=== PATIENT | female | born 1975 | race American Indian/Alaskan Native ===

== ENCOUNTER 2017-01-21 22:34 | Emergency (ER) | payer SELFPAY ==
[2017-01-21 23:08] LABS: Basophils % (Auto) 0.8 % (0.0-1.8); Eosinophils % (Auto) 0.9 % (0.0-4.3); Hematocrit 38.7 % (30.3-42.9); Hemoglobin 14.1 gm/dl (10.1-14.3); Mean Corpuscular HGB Conc 36 % (30-34); Mean Corpuscular Hemoglobin 26 pg (28-32); Mean Corpuscular Volume 72 fl (79-97); Platelet Count 277 K/mm3 (140-440); Red Blood Count 5.37 M/mm3 (3.65-5.03); Red Cell Distribution Width 15.6 % (13.2-15.2); White Blood Count 8.7 K/mm3 (4.5-11.0)
[2017-01-21 23:17] LABS: INR 0.94 (0.87-1.13)
[2017-01-21 23:18] LABS: Partial Thromboplastin Time 28.6 Sec. (24.2-36.6)
[2017-01-21 23:23] LABS: Anion Gap 18 mmol/L; BUN/Creatinine Ratio 17; Blood Urea Nitrogen 15 mg/dL (7-17); Carbon Dioxide 24 mmol/L (22-30); Chloride 98.4 mmol/L (98-107); Glucose 89 mg/dL (65-100); Potassium 3.9 mmol/L (3.6-5.0); Sodium 136 mmol/L (137-145)
--- NOTE | 2017-01-22 00:48 | Cat Scan Report ---
FINAL REPORT EXAM: CT HEAD/BRAIN WO CON HISTORY: htn, h/a , dizziness , left neck pain TECHNIQUE: Routine axial imaging was obtained of the brain without IV contrast. FINDINGS: There are no attenuation abnormalities. The ventricular system is appropriate in size and is symmetric. The sinuses are clear. The mastoid air cells are well pneumatized. IMPRESSION: Normal exam.
[2017-01-22 04:09] LABS: Bilirubin,Urine NEG (Negative); Blood,Urine SM (Negative); Ketones,Urine NEG (Negative); Leukocyte Esterase,Urine NEG (Negative); Mucus,Urine FEW /HPF; Nitrite,Urine NEG (Negative); Protein,Urine <15 mg/dL mg/dL (Negative); Urobilinogen,Urine < 2.0 mg/dL (<2.0); WBC,Urine < 1.0 /HPF (0.0-6.0)
--- NOTE | 2017-01-22 08:38 | Emergency Department Report ---
HPI - General Chief Complaint: Neuro Symptoms/Deficit Time Seen by Provider: 01/22/17 08:11 - [facility] HPI: Room 23 The patient is a 41-year-old female presenting with a chief complaint of dizziness and headache. The patient states her symptoms began yesterday with intermittent dizziness and headache. Patient states she felt as though her blood pressure was elevated so she came to the emergency department. Patient denies any preceding trauma or fever. The patient states she has been compliant with her amlodipine but does not recall the dosage. The patient states she does not have a primary doctor. When asked how she is feeling currently the patient states she feels "okay." Location: Head Duration: Intermittent Since yesterday Quality: Headache/dizziness Severity: Currently 0/10 Modifying factors: [see above] Context: [see above] Mode of transportation: [not driving] ED Past Medical Hx - Past Medical History Previous Medical History?: Yes Hx Hypertension: Yes Hx Psychiatric Treatment: Yes (PTSD) Hx Asthma: Yes - Surgical History Past Surgical History?: Yes Additional Surgical History: Gallbladder, Arm - Family History Family history: no significant - Social History Smoking Status: Current Every Day Smoker Substance Use Type: Alcohol (occasional), Prescribed - Medications Home Medications: Home Medications Medication Instructions Recorded Confirmed Last Taken Type Butalb/Acetamin/Caff 50-325-40 2 tab PO Q8H PRN #10 tab 01/22/17 Unknown Rx [Fioricet] ED Review of Systems ROS: Stated complaint: HEADACHE Other details as noted in HPI Comment: All other systems reviewed and negative Constitutional: denies: chills, fever Eyes: denies: eye pain, eye discharge, vision change ENT: denies: ear pain, throat pain Respiratory: denies: cough, shortness of breath, wheezing Cardiovascular: denies: chest pain, palpitations Endocrine: no symptoms reported Gastrointestinal: denies: abdominal pain, nausea, diarrhea Genitourinary: denies: urgency, dysuria, discharge Musculoskeletal: denies: back pain, joint swelling, arthralgia Neurological: headache, other (dizziness) Psychiatric: denies: anxiety, depression Hematological/Lymphatic: denies: easy bleeding, easy bruising Physical Exam - Physical Exam Vital Signs: Vital Signs 01/21/17 01/21/17 01/21/17 22:36 22:39 22:40 Temperature 98.1 F Pulse Rate 92 H 92 H 62 Respiratory 18 Rate Blood Pressure 173/102 173/102 121/64 Blood Pressure [Right] O2 Sat by Pulse 100 100 95 Oximetry 01/22/17 01/22/17 01/22/17 02:20 02:21 02:23 Temperature Pulse Rate 89 73 72 Respiratory 21 24 Rate Blood Pressure 194/110 Blood Pressure [Right] O2 Sat by Pulse Oximetry 01/22/17 01/22/17 01/22/17 02:24 02:25 02:26 Temperature Pulse Rate 73 70 71 Respiratory 24 20 25 H Rate Blood Pressure 194/110 194/110 192/101 Blood Pressure [Right] O2 Sat by Pulse Oximetry 01/22/17 01/22/17 01/22/17 02:27 02:29 02:31 Temperature Pulse Rate 69 78 76 Respiratory 15 24 21 Rate Blood Pressure 192/101 192/101 174/84 Blood Pressure [Right] O2 Sat by Pulse Oximetry 01/22/17 01/22/17 01/22/17 02:33 02:35 02:37 Temperature Pulse Rate 73 70 73 Respiratory 21 25 H 13 Rate Blood Pressure 174/84 174/84 174/84 Blood Pressure [Right] O2 Sat by Pulse Oximetry 01/22/17 01/22/17 01/22/17 02:39 02:41 02:42 Temperature 98.4 F Pulse Rate 69 69 Respiratory 18 21 24 Rate Blood Pressure 174/84 174/84 Blood Pressure 192/101 [Right] O2 Sat by Pulse 100 100 Oximetry 01/22/17 01/22/17 01/22/17 03:01 04:00 05:01 Temperature Pulse Rate 83 71 69 Respiratory 12 22 16 Rate Blood Pressure 166/151 182/97 172/100 Blood Pressure [Right] O2 Sat by Pulse Oximetry 01/22/17 01/22/17 06:01 07:01 Temperature Pulse Rate 78 71 Respiratory 15 16 Rate Blood Pressure 131/81 131/81 Blood Pressure [Right] O2 Sat by Pulse Oximetry Physical Exam: GENERAL: The patient is well-developed well-nourished female lying on stretcher not appearing to be in acute distress. [] HEENT: Normocephalic. Atraumatic. Extraocular motions are intact. Patient has moist mucous membranes. NECK: Supple. No meningitic signs are noted. Trachea midline CHEST/LUNGS: Clear to auscultation. There is no respiratory distress noted. HEART/CARDIOVASCULAR: Regular. There is no tachycardia. There is no gallop rub or murmur. ABDOMEN: Abdomen is soft, nontender. Patient has normal bowel sounds. There is no abdominal distention. SKIN: There is no rash. There is no edema. There is no diaphoresis. NEURO: The patient is awake, alert, and oriented. The patient is cooperative. The patient has no focal neurologic deficits. The patient has normal speech. Cranial nerves II through XII grossly intact, no drift MUSCULOSKELETAL: There is no evidence of acute injury. ED Course Vital Signs 01/21/17 01/21/17 01/21/17 22:36 22:39 22:40 Temperature 98.1 F Pulse Rate 92 H 92 H 62 Respiratory 18 Rate Blood Pressure 173/102 173/102 121/64 Blood Pressure [Right] O2 Sat by Pulse 100 100 95 Oximetry 01/22/17 01/22/17 01/22/17 02:20 02:21 02:23 Temperature Pulse Rate 89 73 72 Respiratory 21 24 Rate Blood Pressure 194/110 Blood Pressure [Right] O2 Sat by Pulse Oximetry 01/22/17 01/22/17 01/22/17 02:24 02:25 02:26 Temperature Pulse Rate 73 70 71 Respiratory 24 20 25 H Rate Blood Pressure 194/110 194/110 192/101 Blood Pressure [Right] O2 Sat by Pulse Oximetry 01/22/17 01/22/17 01/22/17 02:27 02:29 02:31 Temperature Pulse Rate 69 78 76 Respiratory 15 24 21 Rate Blood Pressure 192/101 192/101 174/84 Blood Pressure [Right] O2 Sat by Pulse Oximetry 01/22/17 01/22/17 01/22/17 02:33 02:35 02:37 Temperature Pulse Rate 73 70 73 Respiratory 21 25 H 13 Rate Blood Pressure 174/84 174/84 174/84 Blood Pressure [Right] O2 Sat by Pulse Oximetry 01/22/17 01/22/17 01/22/17 02:39 02:41 02:42 Temperature 98.4 F Pulse Rate 69 69 Respiratory 18 21 24 Rate Blood Pressure 174/84 174/84 Blood Pressure 192/101 [Right] O2 Sat by Pulse 100 100 Oximetry 01/22/17 01/22/17 01/22/17 03:01 04:00 05:01 Temperature Pulse Rate 83 71 69 Respiratory 12 22 16 Rate Blood Pressure 166/151 182/97 172/100 Blood Pressure [Right] O2 Sat by Pulse Oximetry 01/22/17 01/22/17 06:01 07:01 Temperature Pulse Rate 78 71 Respiratory 15 16 Rate Blood Pressure 131/81 131/81 Blood Pressure [Right] O2 Sat by Pulse Oximetry ED Medical Decision Making - Lab Data Result diagrams: 01/21/17 22:50 01/21/17 22:50 Laboratory Tests 01/21/17 01/21/17 01/21/17 22:50 22:50 22:50 WBC 8.7 RBC 5.37 H Hgb 14.1 Hct 38.7 MCV 72 L MCH 26 L MCHC 36 H RDW 15.6 H Plt Count 277 Lymph % (Auto) 29.1 Owen % (Auto) 4.2 Eos % (Auto) 0.9 Baso % (Auto) 0.8 Lymph # 2.5 Owen # 0.4 Eos # 0.1 Baso # 0.1 Seg Neutrophils % 65.0 Seg Neutrophils # 5.7 PT 13.1 INR 0.94 APTT 28.6 Thrombin Time Sodium Potassium Chloride Carbon Dioxide Anion Gap BUN Creatinine Estimated GFR BUN/Creatinine Ratio Glucose POC Glucose Calcium Troponin T HCG, Qual Negative Urine Color Urine Turbidity Urine pH Ur Specific [place] Urine Protein Urine Glucose (UA) Urine Ketones Urine Blood Urine Nitrite Urine Bilirubin Urine Urobilinogen Ur Leukocyte Esterase Urine WBC (Auto) Urine RBC (Auto) U Epithel Cells (Auto) Urine Mucus 01/21/17 01/21/17 01/22/17 22:50 22:50 02:48 WBC RBC Hgb Hct MCV MCH MCHC RDW Plt Count Lymph % (Auto) Owen % (Auto) Eos % (Auto) Baso % (Auto) Lymph # Owen # Eos # Baso # Seg Neutrophils % Seg Neutrophils # PT INR APTT Thrombin Time 15.9 Sodium 136 L Potassium 3.9 Chloride 98.4 Carbon Dioxide 24 Anion Gap 18 BUN 15 Creatinine 0.9 Estimated GFR > 60 BUN/Creatinine Ratio 17 Glucose 89 POC Glucose 85 Calcium 9.0 Troponin T < 0.010 HCG, Qual Urine Color Urine Turbidity Urine pH Ur Specific [place] Urine Protein Urine Glucose (UA) Urine Ketones Urine Blood Urine Nitrite Urine Bilirubin Urine Urobilinogen Ur Leukocyte Esterase Urine WBC (Auto) Urine RBC (Auto) U Epithel Cells (Auto) Urine Mucus 01/22/17 03:49 WBC RBC Hgb Hct MCV MCH MCHC RDW Plt Count Lymph % (Auto) Owen % (Auto) Eos % (Auto) Baso % (Auto) Lymph # Owen # Eos # Baso # Seg Neutrophils % Seg Neutrophils # PT INR APTT Thrombin Time Sodium Potassium Chloride Carbon Dioxide Anion Gap BUN Creatinine Estimated GFR BUN/Creatinine Ratio Glucose POC Glucose Calcium Troponin T HCG, Qual Urine Color Yellow Urine Turbidity Clear Urine pH 6.0 Ur Specific [place] 1.013 Urine Protein <15 mg/dl Urine Glucose (UA) Neg Urine Ketones Neg Urine Blood Sm Urine Nitrite Neg Urine Bilirubin Neg Urine Urobilinogen < 2.0 Ur Leukocyte Esterase Neg Urine WBC (Auto) < 1.0 Urine RBC (Auto) 4.0 U Epithel Cells (Auto) 1.0 Urine Mucus Few - EKG Data -: EKG Interpreted by Me EKG shows normal: sinus rhythm Rate: normal - EKG Data When compared to previous EKG there are: previous EKG unavailable Interpretation: other (no ischemic changes seen) - Radiology Data Radiology results: report reviewed (CT head), image reviewed (CT head) CT head (read by radiologist)-negative exam - Differential Diagnosis hypertensive urgency, ICH, migraines, vertigo Critical care attestation.: If time is entered above; I have spent that time in minutes in the direct care of this critically ill patient, excluding procedure time. ED Disposition Clinical Impression: Headache Disposition: DC-01 TO HOME OR SELFCARE Is pt being admited?: No Does the pt Need Aspirin: No Condition: Stable Instructions: Hypertension (ED) Additional Instructions: Return to the emergency department immediately should you develop worsening symptoms, fever, inability to tolerate food or liquid or any other concerns. Prescriptions: Butalb/Acetamin/Caff 50-325-40 [Fioricet] 2 tab PO Q8H PRN #10 tab PRN Reason: Headache Referrals: HEMA ONEAL MD [Staff Physician] - 3-5 Days [facility] [Outside] - 3-5 Days Time of Disposition: 10:17
[2017-01-22] MEDS ORDERED: CATAPRES PO ONE (08:49)
[2017-01-22 10:16] VITALS: BP 138/89
== END 2017-01-22 10:36 | disposition home or self-care (01) ==
LOC: ED 22:34
DX: R51 Headache (principal); I10 Essential (primary) hypertension; J45.909 Unspecified asthma, uncomplicated; F43.10 Post-traumatic stress disorder, unspecified; F17.200 Nicotine dependence, unspecified, uncomplicated
CPT/HCPCS: 36415; 70450; 80048; 81001; 82962; 84484; 84703; 85025; 85610; 85670; 85730; 93005; 93010; 99285

== ENCOUNTER 2017-07-17 02:07 | Inpatient (IN) | payer OTHER ==
[2017-07-17] MEDS ORDERED: DELTASONE PO ONE (04:35)
[2017-07-17] MEDS ORDERED: PROVENTIL IH ONE (04:35)
[2017-07-17] MEDS ORDERED: MOTRIN PO ONE (04:35)
--- NOTE | 2017-07-17 04:35 | Emergency Department Report ---
HPI - General Chief Complaint: Upper Respiratory Infection Time Seen by Provider: 07/17/17 04:29 - HPI HPI: This is a 41-year-old female came to the hospital for body aches, headache, cough since Thursday. States that she is feeling dizzy and she has a cough with minor shortness of breath but no chest pain. Her history is high blood pressure and asthma. She denies any wheezing. Denies any other medical problems. She also has a history of gastric ulcer. She is currently denying any pain. History of PTSD. Surgical history of gallbladder in 2004. Denies any back or abdominal pain. ED Past Medical Hx - Past Medical History Previous Medical History?: Yes Hx Hypertension: Yes Hx Psychiatric Treatment: Yes (PTSD) Hx Asthma: Yes - Surgical History Past Surgical History?: Yes Additional Surgical History: Gallbladder 2004, R [id number] - Family History Family history: hypertension - Social History Smoking Status: Current Every Day Smoker Substance Use Type: Alcohol - Medications Home Medications: Home Medications Medication Instructions Recorded Confirmed Last Taken Type No Known Home Medications [No 07/17/17 07/17/17 Unknown History Reported Home Medications] ED Review of Systems ROS: Stated complaint: COUGH Other details as noted in HPI Comment: All other systems reviewed and negative Constitutional: malaise Eyes: denies: eye pain, vision change ENT: congestion. denies: ear pain, throat pain, dental pain Respiratory: cough, shortness of breath, SOB with exertion, wheezing. denies: SOB at rest Cardiovascular: denies: chest pain, palpitations, dyspnea on exertion, edema, syncope, paroxysmal nocturnal dyspnea Gastrointestinal: denies: abdominal pain, nausea, vomiting, diarrhea Genitourinary: denies: dysuria, hematuria Musculoskeletal: denies: back pain, joint swelling, arthralgia, myalgia Skin: denies: rash Neurological: denies: headache, weakness, numbness, paresthesias, abnormal gait , vertigo Physical Exam - Physical Exam Vital Signs: Vital Signs 07/17/17 07/17/17 03:58 04:18 Temperature 98.5 F 98.8 F Pulse Rate 92 H 95 H Respiratory 18 20 Rate Blood Pressure 168/85 Blood Pressure 182/90 [Right] O2 Sat by Pulse 96 94 Oximetry General: This is a 41-year-old female that appears to be in mild distress. Physical Exam: Head: Normocephalic, atraumatic, no abrasion, no bruising and no contusion. Eyes: Biateral pupils equal and reactive to light, bilateral EOM intact.. Bilateral conjunctival and sclera without injection, normal accommodation. No nystagmus Mouth: Mucosa moist, no pharyngeal exudate or erythema. No peritonsillar abscesses. Uvula is midline and oral airways patent. Ears: Congested without erythema .Bilateral EAC without any redness swelling or drainage. No mastoid bone tenderness Nose: Bilateral nasal mucosa congested with clear drainage,Maxillary and frontal sinuses non-tender to palpate. Neck: Supple, No Cervical adenopathy, full range of motion and no C-spine tenderness. No swelling or tracheal deviation normal reflexes Cardiovascular: S1, S2. Regular rate and rhythm. No murmur. Capillary refill is less then 3 seconds. Lungs: Wheezing to lung rodríguez with rhonchi and rales to left lower lobe. Patient with mild increase work of breathing. No chest wall tenderness. No chest contusion. No bruising to chest. MSK: Strength 5/5 in all extremities. No joint deformity or crepitus. Normal inspection. Full range of motion to all extremities. No laceration, abrasion or ecchymotic area noted. Abdomen: Non-tender to palpate in all quadrants, no guarding or rebound tenderness, positive bowel sounds in all quadrants. No CVA tenderness. No hernia, bruit or mass. No rigidity or distention. Extremities: No clubbing, cyanosis or edema. +2 pulses. No neurovascular compromise Skin: Clean, dry and intact. No rash or lesions. Back: No vertebral tenderness, no paraspinal tenderness. Ambulates without any difficulties. Psych: Normal mood and behavior ED Course Vital Signs 07/17/17 07/17/17 03:58 04:18 Temperature 98.5 F 98.8 F Pulse Rate 92 H 95 H Respiratory 18 20 Rate Blood Pressure 168/85 Blood Pressure 182/90 [Right] O2 Sat by Pulse 96 94 Oximetry - Reevaluation(s) Reevaluation #1: 07/17/17 07:39 She has cough, wheezing and shortness of breath. Patient was given albuterol 0.5 mg and Atrovent 0.5 mg nebulizer. She was given prednisone 60 mg by mouth. Reevaluation #2: 07/17/17 07:41 Patient found to have multilobar pneumonia via x-ray. Also her BNP is elevated. Patient placed on 2 L nasal cannula. Zosyn 4.5 g IV given without any adverse reaction. Patient given Tylenol with Codeine 5 mg elixir for constant coughing. Her O2 sat remained stable. CBC is stable, chemistry with slight decrease in potassium and she was given potassium 40 mEq by mouth. She remained stable throughout ED course. It was decided the patient will be admitted for multilobar pneumonia although she does not have increase in white count. Her BNP is also elevated suspect pulmonary edema. I spoke to hospitalist and she decided to accept patient for admission. Reevaluation #3: 07/17/17 07:49 Troponin and EKG ordered ED Medical Decision Making - Lab Data Result diagrams: 07/17/17 05:35 07/17/17 05:35 Lab Results 07/17/17 07/17/17 07/17/17 Range/Units 05:35 05:35 06:07 WBC 5.2 (4.5-11.0) K/mm3 RBC 5.25 H (3.65-5.03) M/mm3 Hgb 13.0 (10.1-14.3) gm/dl Hct 37.2 (30.3-42.9) % MCV 71 L (79-97) fl MCH 25 L (28-32) pg MCHC 35 H (30-34) % RDW 14.9 (13.2-15.2) % Plt Count 164 (140-440) K/mm3 Lymph % (Auto) 24.2 (13.4-35.0) % [place] % (Auto) 3.5 (0.0-7.3) % Eos % (Auto) 0.1 (0.0-4.3) % Baso % (Auto) 0.4 (0.0-1.8) % Lymph # 1.2 (1.2-5.4) K/mm3 [place] # 0.2 (0.0-0.8) K/mm3 Eos # 0.0 (0.0-0.4) K/mm3 Baso # 0.0 (0.0-0.1) K/mm3 Seg Neutrophils % 71.8 H (40.0-70.0) % Seg Neutrophils # 3.7 (1.8-7.7) K/mm3 Sodium 135 L (137-145) mmol/L Potassium 3.3 L (3.6-5.0) mmol/L Chloride 95.8 L (98-107) mmol/L Carbon Dioxide 27 (22-30) mmol/L Anion Gap 16 mmol/L BUN 14 (7-17) mg/dL Creatinine 0.8 (0.7-1.2) mg/dL Estimated GFR > 60 ml/min BUN/Creatinine Ratio 18 % Glucose 95 (65-100) mg/dL Lactic Acid (0.7-2.0) mmol/L Calcium 8.5 (8.4-10.2) mg/dL Total Bilirubin 0.30 (0.1-1.2) mg/dL AST 19 (5-40) units/L ALT 11 (7-56) units/L Alkaline Phosphatase 59 (35-129) units/L NT-Pro-B Natriuret Pep 1554 H (0-450) pg/mL Total Protein 6.4 (6.3-8.2) g/dL Albumin 3.5 L (3.9-5) g/dL Albumin/Globulin Ratio 1.2 % // Range/Units 06:07 WBC (4.5-11.0) K/mm3 RBC (3.65-5.03) M/mm3 Hgb (10.1-14.3) gm/dl Hct (30.3-42.9) % MCV (79-97) fl MCH (28-32) pg MCHC (30-34) % RDW (13.2-15.2) % Plt Count (140-440) K/mm3 Lymph % (Auto) (13.4-35.0) % [place] % (Auto) (0.0-7.3) % Eos % (Auto) (0.0-4.3) % Baso % (Auto) (0.0-1.8) % Lymph # (1.2-5.4) K/mm3 [place] # (0.0-0.8) K/mm3 Eos # (0.0-0.4) K/mm3 Baso # (0.0-0.1) K/mm3 Seg Neutrophils % (40.0-70.0) % Seg Neutrophils # (1.8-7.7) K/mm3 Sodium (137-145) mmol/L Potassium (3.6-5.0) mmol/L Chloride (98-107) mmol/L Carbon Dioxide (22-30) mmol/L Anion Gap mmol/L BUN (7-17) mg/dL Creatinine (0.7-1.2) mg/dL Estimated GFR ml/min BUN/Creatinine Ratio % Glucose (65-100) mg/dL Lactic Acid 1.60 (0.7-2.0) mmol/L Calcium (8.4-10.2) mg/dL Total Bilirubin (0.1-1.2) mg/dL AST (5-40) units/L ALT (7-56) units/L Alkaline Phosphatase (35-129) units/L NT-Pro-B Natriuret Pep (0-450) pg/mL Total Protein (6.3-8.2) g/dL Albumin (3.9-5) g/dL Albumin/Globulin Ratio % Blood cultures pending Urine culture pending Urinalysis pending HCG qualitative pending - Radiology Data Radiology results: report reviewed X-ray of chest revealed patient with bilateral pulmonary infiltrates, left greater than right. Multifocal pneumonia. There is no pleural effusion or pneumothorax. Scattered patchy infiltrates in the lateral right lung, and left mid lower lung rodríguez. Primarily in the left lower lobe . - Medical Decision Making ED course: Patient presented to the emergency room complaining of feeling weak, dizzy with flulike symptoms. Chest x-ray showed patient with multilobar pneumonia. Patient with some shortness of breath. CBC stable except for some minor abnormality is, chemistry with potassium of 3.2 and patient was repleted with potassium 40 mEq by mouth. White count was normal. Troponin normal. BNP elevated. Urinalysis stable. Negative . Patient was given albuterol 2.5 mg and Atrovent 0.5 mg treatment in emergency room for cough, wheezes and she still remains with some shortness of breath but she says she felt a little better. EKG was done in process. Patient has no access to a primary care and does not have a primary care physician. It was decided the patient will be admitted for multilobar pneumonia and possible congestive heart failure due to elevated BNP. I spoke with Dr. Isaacs for reviewed patient decided a patient will need to be admitted. I spoke to hospitalist Dr. Garcia and he agreed to accept patient. Urine culture and blood cultures were sent and pending. Patient given Zosyn 4.5 g IV in the emergency room. She was given Deltasone 60 mg by mouth, Motrin 600 mg by mouth. She was given Tylenol with Codeine 5 mL for coughing. This was discussed patient and she voiced understanding. Patient is stable and awaiting to be admitted to [facility] were remote telemetry. Critical care attestation.: If time is entered above; I have spent that time in minutes in the direct care of this critically ill patient, excluding procedure time. ED Disposition Clinical Impression: Upper respiratory infection with cough and congestion, Shortness of breath, Elevated brain natriuretic peptide (BNP) level, Hypokalemia Pneumonia Qualifiers: Pneumonia type: due to unspecified organism Laterality: bilateral Lung location : unspecified part of lung Qualified Code(s): J18.9 - Pneumonia, unspecified organism Disposition: OP ADMIT IP TO THIS HOSP Is pt being admited?: Yes Does the pt Need Aspirin: No Condition: Stable
[2017-07-17] MEDS ORDERED: ATROVENT IH ONE (04:36)
--- NOTE | 2017-07-17 05:03 | XRay Report ---
FINAL REPORT EXAM: XR CHEST ROUTINE 2V HISTORY: Cough and congestion. TECHNIQUE: Frontal and lateral radiographs of the chest were obtained. No prior studies are available for comparison. FINDINGS: The cardiac silhouette and mediastinum are within normal limits. There are scattered patchy infiltrates in the lateral right midlung, and left mid-lower lung rodríguez (primarily in the left lower lobe), in keeping with multifocal pneumonia. There is no pleural effusion or pneumothorax. No significant osseous abnormalities are identified. IMPRESSION: Bilateral pulmonary infiltrates, left greater right, in keeping with multifocal pneumonia.
[2017-07-17 05:45] LABS: Basophils % (Auto) 0.4 % (0.0-1.8); Eosinophils % (Auto) 0.1 % (0.0-4.3); Hematocrit 37.2 % (30.3-42.9); Lymphocytes # (Auto) 1.2 K/mm3 (1.2-5.4); Lymphocytes % (Auto) 24.2 % (13.4-35.0); Mean Corpuscular HGB Conc 35 % (30-34); Mean Corpuscular Volume 71 fl (79-97); Monocytes # (Auto) 0.2 K/mm3 (0.0-0.8); Monocytes % (Auto) 3.5 % (0.0-7.3); Platelet Count 164 K/mm3 (140-440); Red Blood Count 5.25 M/mm3 (3.65-5.03); Red Cell Distribution Width 14.9 % (13.2-15.2)
[2017-07-17 05:49] LABS: Mean Corpuscular Hemoglobin 25 pg (28-32)
[2017-07-17] MEDS ORDERED: ZOSYN/NS 4.5GM/100ML 4.5 GM/100 ML VIAL IV ONE (06:00)
[2017-07-17 06:02] LABS: Alanine Aminotransferase 11 units/L (7-56); Albumin 3.5 g/dL (3.9-5); BUN/Creatinine Ratio 18; Blood Urea Nitrogen 14 mg/dL (7-17); Calcium 8.5 mg/dL (8.4-10.2); Hemolysis Index 4
[2017-07-17] MEDS ORDERED: K-DUR PO ONE (06:16)
[2017-07-17] MEDS ORDERED: TYLENOL/CODEINE PO ONE ×2 (06:40→06:52)
[2017-07-17 08:46] LABS: Bacteria,Urine 1+ /HPF (Negative); Bilirubin,Urine NEG (Negative); Blood,Urine MOD (Negative); Color,Urine Yellow (Yellow); Urobilinogen,Urine < 2.0 mg/dL (<2.0)
[2017-07-17] MEDS: NORVASC PO SCH (17:19)
--- NOTE | 2017-07-17 17:28 | History and Physical Report ---
History of Present Illness Date of examination: 07/17/17 Date of admission: 07/17/17 07:50 Chief complaint: sob History of present illness: This is a 41-year-old female came to the hospital for body aches, headache, cough since Thursday. Pt reports cough but no sputum production with minor shortness of breath but no chest pain. Her past medical history consists of high blood pressure and asthma. She denies any wheezing. Denies any other medical problems. She also has a history of gastric ulcer. She is currently denying any pain. History of PTSD. Surgical history of gallbladder in 2004. Denies any back or abdominal pain. Pt. reports subjective fever and chills. No N/V. Past History Past Medical History: hypertension, other (asthma) Past Surgical History: cholecystectomy Social history: no significant social history Family history: no significant family history Medications and Allergies Allergies Allergy/AdvReac Type Severity Reaction Status Date / Time No Known Allergies Allergy Unverified 01/21/17 22:39 Home Medications Medication Instructions Recorded Confirmed Last Taken Type No Known Home Medications [No 07/17/17 07/17/17 Unknown History Reported Home Medications] Active Meds: Active Medications Amlodipine Besylate (Norvasc) 10 mg PO QDAY [facility] Last Admin: 07/17/17 17:19 Dose: 10 mg Escitalopram Oxalate (Lexapro) 20 mg PO QDAY EPI Hydralazine HCl (Apresoline) 20 mg IV Q6H PRN PRN Reason: Blood Pressure Piperacillin Sod/Tazobactam Sod (Zosyn/Ns 4.5gm/100ml) 4.5 gm in 100 mls @ 200 mls/hr IV Q8HR [facility]; Protocol Trazodone HCl (Desyrel) 150 mg PO QHS EPI Zolpidem Tartrate (Ambien) 5 mg PO QHS PRN PRN Reason: Sleep Review of Systems All systems: negative Exam - Constitutional Vitals: Temp Pulse Resp BP Pulse Ox 97.8 F 81 20 184/114 97 07/17/17 15:15 07/17/17 15:15 07/17/17 15:15 07/17/17 15:15 07/17/17 15:15 General appearance: Present: no acute distress, well-nourished - EENT Eyes: Present: PERRL ENT: hearing intact, clear oral mucosa - Neck Neck: Present: supple, normal ROM - Respiratory Respiratory effort: normal Respiratory: bilateral: CTA - Cardiovascular Heart Sounds: Present: S1 & S2. Absent: rub, click - Extremities Extremities: pulses symmetrical, No edema Peripheral Pulses: within normal limits - Abdominal General gastrointestinal: Present: soft, non-tender, non-distended, normal bowel sounds Female genitourinary: Present: normal - Integumentary Integumentary: Present: clear, warm, dry - Musculoskeletal Musculoskeletal: gait normal, strength equal bilaterally - Psychiatric Psychiatric: appropriate mood/affect, intact judgment & insight - Neurologic Neurologic: CNII-XII intact, moves all extremities Results - Labs CBC & Chem 7: 07/17/17 05:35 07/17/17 05:35 Labs: Laboratory Last Values WBC 5.2 K/mm3 (4.5-11.0) 07/17/17 05:35 RBC 5.25 M/mm3 (3.65-5.03) H 07/17/17 05:35 Hgb 13.0 gm/dl (10.1-14.3) 07/17/17 05:35 Hct 37.2 % (30.3-42.9) 07/17/17 05:35 MCV 71 fl (79-97) L 07/17/17 05:35 MCH 25 pg (28-32) L 07/17/17 05:35 MCHC 35 % (30-34) H 07/17/17 05:35 RDW 14.9 % (13.2-15.2) 07/17/17 05:35 Plt Count 164 K/mm3 (140-440) 07/17/17 05:35 Lymph % (Auto) 24.2 % (13.4-35.0) 07/17/17 05:35 [place] % (Auto) 3.5 % (0.0-7.3) 07/17/17 05:35 Eos % (Auto) 0.1 % (0.0-4.3) 07/17/17 05:35 Baso % (Auto) 0.4 % (0.0-1.8) 07/17/17 05:35 Lymph # 1.2 K/mm3 (1.2-5.4) 07/17/17 05:35 [place] # 0.2 K/mm3 (0.0-0.8) 07/17/17 05:35 Eos # 0.0 K/mm3 (0.0-0.4) 07/17/17 05:35 Baso # 0.0 K/mm3 (0.0-0.1) 07/17/17 05:35 Seg Neutrophils % 71.8 % (40.0-70.0) H 07/17/17 05:35 Seg Neutrophils # 3.7 K/mm3 (1.8-7.7) 07/17/17 05:35 Sodium 135 mmol/L (137-145) L 07/17/17 05:35 Potassium 3.3 mmol/L (3.6-5.0) L 07/17/17 05:35 Chloride 95.8 mmol/L (98-107) L 07/17/17 05:35 Carbon Dioxide 27 mmol/L (22-30) 07/17/17 05:35 Anion Gap 16 mmol/L 07/17/17 05:35 BUN 14 mg/dL (7-17) 07/17/17 05:35 Creatinine 0.8 mg/dL (0.7-1.2) 07/17/17 05:35 Estimated GFR > 60 ml/min 07/17/17 05:35 BUN/Creatinine Ratio 18 % 07/17/17 05:35 Glucose 95 mg/dL (65-100) 07/17/17 05:35 Lactic Acid 1.60 mmol/L (0.7-2.0) 07/17/17 06:07 Calcium 8.5 mg/dL (8.4-10.2) 07/17/17 05:35 Total Bilirubin 0.30 mg/dL (0.1-1.2) 07/17/17 05:35 AST 19 units/L (5-40) 07/17/17 05:35 ALT 11 units/L (7-56) 07/17/17 05:35 Alkaline Phosphatase 59 units/L (35-129) 07/17/17 05:35 Troponin T < 0.010 ng/mL (0.00-0.029) 07/17/17 06:07 NT-Pro-B Natriuret Pep 1554 pg/mL (0-450) H 07/17/17 06:07 Total Protein 6.4 g/dL (6.3-8.2) 07/17/17 05:35 Albumin 3.5 g/dL (3.9-5) L 07/17/17 05:35 Albumin/Globulin Ratio 1.2 % 07/17/17 05:35 HCG, Qual Negative (Negative) 07/17/17 07:48 Urine Color Yellow (Yellow) 07/17/17 07:45 Urine Turbidity Clear (Clear) 07/17/17 07:45 Urine pH 5.0 (5.0-7.0) 07/17/17 07:45 Ur Specific [place] 1.019 (1.003-1.030) 07/17/17 07:45 Urine Protein 30 mg/dl mg/dL (Negative) 07/17/17 07:45 Urine Glucose (UA) Neg mg/dL (Negative) 07/17/17 07:45 Urine Ketones Neg mg/dL (Negative) 07/17/17 07:45 Urine Blood Mod (Negative) 07/17/17 07:45 Urine Nitrite Neg (Negative) 07/17/17 07:45 Urine Bilirubin Neg (Negative) 07/17/17 07:45 Urine Urobilinogen < 2.0 mg/dL (<2.0) 07/17/17 07:45 Ur Leukocyte Esterase Neg (Negative) 07/17/17 07:45 Urine WBC (Auto) 2.0 /HPF (0.0-6.0) 07/17/17 07:45 Urine RBC (Auto) 8.0 /HPF (0.0-6.0) 07/17/17 07:45 U Epithel Cells (Auto) 4.0 /HPF (0-13.0) 07/17/17 07:45 Urine Bacteria (Auto) 1+ /HPF (Negative) 07/17/17 07:45 Assessment and Plan Assessment and plan: Bilateral pneumonia. CXR reveals multifocal PNA. Cont abx and f/u serial CXR Acute mild CHF exac. Check ECHO to determine etiology of systolic vs diastolic dysfxn. Mildly elevated BNP. Consider Cards consult Acute hypoxic resp failure. Etiology sec to above. Cont O2 and supportive care.
[2017-07-17] MEDS ORDERED: ZOFRAN IV PRN (17:33)
[2017-07-17] MEDS ORDERED: SODIUM CHLORIDE FLUSH SYRINGE 10 ML IV PRN (17:33)
[2017-07-17] MEDS: PROVENTIL IH SCH (20:55)
[2017-07-17] MEDS: AMBIEN PO PRN (21:18)
[2017-07-17] MEDS: DESYREL PO SCH (21:19)
[2017-07-17] MEDS: ZOSYN/NS 4.5GM/100ML 4.5 GM/100 ML VIAL IV SCH (21:19)
[2017-07-17] MEDS: LEXAPRO PO SCH (21:19)
[2017-07-17] MEDS: SINGULAIR PO SCH (21:20)
[2017-07-17] MEDS: SODIUM CHLORIDE FLUSH SYRINGE 10 ML IV SCH (21:21)
[2017-07-17] MEDS ORDERED: NACL 0.9% 250ML 250 ML ONE (21:25)
[2017-07-18] MEDS ORDERED: NACL 0.9% 250ML 250 ML IV ONE (01:22)
[2017-07-18] MEDS: PROVENTIL IH SCH ×4 (01:51→20:10)
[2017-07-18] MEDS: TESSALON PERLES PO SCH ×3 (02:36→18:37)
[2017-07-18] MEDS: APRESOLINE IV PRN ×2 (02:37→14:46)
[2017-07-18] MEDS: ZOSYN/NS 4.5GM/100ML 4.5 GM/100 ML VIAL IV SCH (05:55)
[2017-07-18] MEDS ORDERED: TESSALON PERLES PO SCH (06:00)
[2017-07-18 06:56] LABS: Basophils % (Auto) 0.4 % (0.0-1.8); Hematocrit 40.9 % (30.3-42.9); Hemoglobin 13.6 gm/dl (10.1-14.3); Lymphocytes # (Auto) 0.8 K/mm3 (1.2-5.4); Lymphocytes % (Auto) 15.9 % (13.4-35.0); Mean Corpuscular HGB Conc 33 % (30-34); Mean Corpuscular Volume 73 fl (79-97); Monocytes # (Auto) 0.3 K/mm3 (0.0-0.8); Monocytes % (Auto) 5.5 % (0.0-7.3); Platelet Count 224 K/mm3 (140-440); Red Blood Count 5.62 M/mm3 (3.65-5.03); Red Cell Distribution Width 15.2 % (13.2-15.2)
[2017-07-18 06:57] LABS: Mean Corpuscular Hemoglobin 24 pg (28-32)
[2017-07-18 07:08] LABS: BUN/Creatinine Ratio 20; Blood Urea Nitrogen 12 mg/dL (7-17); Calcium 8.8 mg/dL (8.4-10.2); Hemolysis Index 100
[2017-07-18] MEDS: TYLENOL PO PRN ×2 (09:31→22:05)
[2017-07-18] MEDS: NORVASC PO SCH (09:31)
[2017-07-18] MEDS: LOVENOX SUB-Q SCH (09:31)
[2017-07-18] MEDS: LEXAPRO PO SCH (09:31)
[2017-07-18] MEDS ORDERED: ROCEPHIN/NS 1 GM/50 ML 1 GM/50 ML BAG IV SCH (10:00)
--- NOTE | 2017-07-18 12:04 | Progress Note ---
Assessment and Plan Assessment and plan: Bilateral pneumonia. CXR reveals multifocal PNA. Cont abx and f/u serial CXR Acute mild CHF exac. Check ECHO to determine etiology of systolic vs diastolic dysfxn. Mildly elevated BNP. Consider Cards consult Acute hypoxic resp failure. Etiology sec to above. Cont O2 and supportive care. History Interval history: No new issues overnight. Hospitalist Physical - Constitutional Vitals: Temp Pulse Resp BP Pulse Ox 98.1 F 82 18 167/102 94 07/18/17 05:03 07/18/17 05:03 07/18/17 05:03 07/18/17 05:03 07/18/17 05:03 General appearance: Present: no acute distress, well-nourished - EENT Eyes: Present: PERRL, EOM intact ENT: hearing intact, clear oral mucosa, dentition normal - Neck Neck: Present: supple, normal ROM - Respiratory Respiratory effort: normal Respiratory: bilateral: CTA - Cardiovascular Rhythm: regular Heart Sounds: Present: S1 & S2. Absent: gallop, rub - Extremities Extremities: no ischemia, No edema, Full ROM - Abdominal General gastrointestinal: soft, non-tender, non-distended, normal bowel sounds - Integumentary Integumentary: Present: clear, warm, dry - Neurologic Neurologic: CNII-XII intact, moves all extremities Results - Labs CBC & Chem 7: 07/18/17 06:03 07/18/17 06:03 Labs: Laboratory Last Values WBC 5.2 K/mm3 (4.5-11.0) 07/18/17 06:03 RBC 5.62 M/mm3 (3.65-5.03) H 07/18/17 06:03 Hgb 13.6 gm/dl (10.1-14.3) 07/18/17 06:03 Hct 40.9 % (30.3-42.9) 07/18/17 06:03 MCV 73 fl (79-97) L 07/18/17 06:03 MCH 24 pg (28-32) L 07/18/17 06:03 MCHC 33 % (30-34) 07/18/17 06:03 RDW 15.2 % (13.2-15.2) 07/18/17 06:03 Plt Count 224 K/mm3 (140-440) 07/18/17 06:03 Lymph % (Auto) 15.9 % (13.4-35.0) 07/18/17 06:03 [place] % (Auto) 5.5 % (0.0-7.3) 07/18/17 06:03 Eos % (Auto) 0.0 % (0.0-4.3) 07/18/17 06:03 Baso % (Auto) 0.4 % (0.0-1.8) 07/18/17 06:03 Lymph # 0.8 K/mm3 (1.2-5.4) L 07/18/17 06:03 [place] # 0.3 K/mm3 (0.0-0.8) 07/18/17 06:03 Eos # 0.0 K/mm3 (0.0-0.4) 07/18/17 06:03 Baso # 0.0 K/mm3 (0.0-0.1) 07/18/17 06:03 Seg Neutrophils % 78.2 % (40.0-70.0) H 07/18/17 06:03 Seg Neutrophils # 4.1 K/mm3 (1.8-7.7) 07/18/17 06:03 Sodium 135 mmol/L (137-145) L 07/18/17 06:03 Potassium 4.2 mmol/L (3.6-5.0) D 07/18/17 06:03 Chloride 98.2 mmol/L (98-107) 07/18/17 06:03 Carbon Dioxide 22 mmol/L (22-30) 07/18/17 06:03 Anion Gap 19 mmol/L 07/18/17 06:03 BUN 12 mg/dL (7-17) 07/18/17 06:03 Creatinine 0.6 mg/dL (0.7-1.2) L 07/18/17 06:03 Estimated GFR > 60 ml/min 07/18/17 06:03 BUN/Creatinine Ratio 20 % 07/18/17 06:03 Glucose 115 mg/dL (65-100) H 07/18/17 06:03 Lactic Acid 1.60 mmol/L (0.7-2.0) 07/17/17 06:07 Calcium 8.8 mg/dL (8.4-10.2) 07/18/17 06:03 Total Bilirubin 0.30 mg/dL (0.1-1.2) 07/17/17 05:35 AST 19 units/L (5-40) 07/17/17 05:35 ALT 11 units/L (7-56) 07/17/17 05:35 Alkaline Phosphatase 59 units/L (35-129) 07/17/17 05:35 Troponin T < 0.010 ng/mL (0.00-0.029) 07/17/17 06:07 NT-Pro-B Natriuret Pep 1554 pg/mL (0-450) H 07/17/17 06:07 Total Protein 6.4 g/dL (6.3-8.2) 07/17/17 05:35 Albumin 3.5 g/dL (3.9-5) L 07/17/17 05:35 Albumin/Globulin Ratio 1.2 % 07/17/17 05:35 HCG, Qual Negative (Negative) 07/17/17 07:48 Urine Color Yellow (Yellow) 07/17/17 07:45 Urine Turbidity Clear (Clear) 07/17/17 07:45 Urine pH 5.0 (5.0-7.0) 07/17/17 07:45 Ur Specific [place] 1.019 (1.003-1.030) 07/17/17 07:45 Urine Protein 30 mg/dl mg/dL (Negative) 07/17/17 07:45 Urine Glucose (UA) Neg mg/dL (Negative) 07/17/17 07:45 Urine Ketones Neg mg/dL (Negative) 07/17/17 07:45 Urine Blood Mod (Negative) 07/17/17 07:45 Urine Nitrite Neg (Negative) 07/17/17 07:45 Urine Bilirubin Neg (Negative) 07/17/17 07:45 Urine Urobilinogen < 2.0 mg/dL (<2.0) 07/17/17 07:45 Ur Leukocyte Esterase Neg (Negative) 07/17/17 07:45 Urine WBC (Auto) 2.0 /HPF (0.0-6.0) 07/17/17 07:45 Urine RBC (Auto) 8.0 /HPF (0.0-6.0) 07/17/17 07:45 U Epithel Cells (Auto) 4.0 /HPF (0-13.0) 07/17/17 07:45 Urine Bacteria (Auto) 1+ /HPF (Negative) 07/17/17 07:45
[2017-07-18] MEDS: ZITHROMAX PO SCH (13:34)
[2017-07-18] MEDS: SODIUM CHLORIDE FLUSH SYRINGE 10 ML IV SCH ×2 (13:36→22:06)
[2017-07-18] MEDS: cefTRIAXone 1 GM in NACL 0.9% 20 ML IV SCH (14:47)
[2017-07-18] MEDS: DESYREL PO SCH (22:01)
[2017-07-18] MEDS: SINGULAIR PO SCH (22:04)
[2017-07-18] MEDS: AMBIEN PO PRN (22:08)
[2017-07-19] MEDS: PROVENTIL IH SCH ×4 (01:42→20:05)
[2017-07-19] MEDS: TESSALON PERLES PO SCH ×3 (02:02→17:55)
[2017-07-19] MEDS: APRESOLINE IV PRN (03:37)
[2017-07-19] MEDS: cefTRIAXone 1 GM in NACL 0.9% 20 ML IV SCH (09:52)
[2017-07-19] MEDS: LEXAPRO PO SCH (09:53)
[2017-07-19] MEDS: LOVENOX SUB-Q SCH (09:54)
[2017-07-19] MEDS: NORVASC PO SCH (09:54)
[2017-07-19] MEDS: SODIUM CHLORIDE FLUSH SYRINGE 10 ML IV SCH ×2 (09:55→22:13)
[2017-07-19] MEDS: TYLENOL PO PRN (10:47)
[2017-07-19] MEDS: ZITHROMAX PO SCH (10:48)
--- NOTE | 2017-07-19 12:41 | Progress Note ---
Assessment and Plan Assessment and plan: Bilateral pneumonia. CXR reveals multifocal PNA. Cont abx and f/u serial CXR. Echocardiogram reveals normal EF. Repeat chest x-ray in a.m. Acute hypoxic resp failure. Etiology sec to above. Cont O2 and supportive care. History Interval history: No new issues overnight. Hospitalist Physical - Constitutional Vitals: Temp Pulse Resp BP Pulse Ox 97.7 F 83 20 150/77 98 07/19/17 08:38 07/19/17 09:54 07/19/17 09:10 07/19/17 09:54 07/19/17 08:59 General appearance: Present: no acute distress, well-nourished - EENT Eyes: Present: PERRL, EOM intact ENT: hearing intact, clear oral mucosa, dentition normal - Neck Neck: Present: supple, normal ROM - Respiratory Respiratory effort: normal Respiratory: bilateral: diminished, rhonchi - Cardiovascular Rhythm: regular Heart Sounds: Present: S1 & S2. Absent: gallop, rub - Extremities Extremities: no ischemia, No edema, Full ROM - Abdominal General gastrointestinal: soft, non-tender, non-distended, normal bowel sounds - Integumentary Integumentary: Present: clear, warm, dry - Neurologic Neurologic: CNII-XII intact, moves all extremities Results - Labs CBC & Chem 7: 07/18/17 06:03 07/18/17 06:03 Labs: Laboratory Last Values WBC 5.2 K/mm3 (4.5-11.0) 07/18/17 06:03 RBC 5.62 M/mm3 (3.65-5.03) H 07/18/17 06:03 Hgb 13.6 gm/dl (10.1-14.3) 07/18/17 06:03 Hct 40.9 % (30.3-42.9) 07/18/17 06:03 MCV 73 fl (79-97) L 07/18/17 06:03 MCH 24 pg (28-32) L 07/18/17 06:03 MCHC 33 % (30-34) 07/18/17 06:03 RDW 15.2 % (13.2-15.2) 07/18/17 06:03 Plt Count 224 K/mm3 (140-440) 07/18/17 06:03 Lymph % (Auto) 15.9 % (13.4-35.0) 07/18/17 06:03 [place] % (Auto) 5.5 % (0.0-7.3) 07/18/17 06:03 Eos % (Auto) 0.0 % (0.0-4.3) 07/18/17 06:03 Baso % (Auto) 0.4 % (0.0-1.8) 07/18/17 06:03 Lymph # 0.8 K/mm3 (1.2-5.4) L 07/18/17 06:03 [place] # 0.3 K/mm3 (0.0-0.8) 07/18/17 06:03 Eos # 0.0 K/mm3 (0.0-0.4) 07/18/17 06:03 Baso # 0.0 K/mm3 (0.0-0.1) 07/18/17 06:03 Seg Neutrophils % 78.2 % (40.0-70.0) H 07/18/17 06:03 Seg Neutrophils # 4.1 K/mm3 (1.8-7.7) 07/18/17 06:03 Sodium 135 mmol/L (137-145) L 07/18/17 06:03 Potassium 4.2 mmol/L (3.6-5.0) D 07/18/17 06:03 Chloride 98.2 mmol/L (98-107) 07/18/17 06:03 Carbon Dioxide 22 mmol/L (22-30) 07/18/17 06:03 Anion Gap 19 mmol/L 07/18/17 06:03 BUN 12 mg/dL (7-17) 07/18/17 06:03 Creatinine 0.6 mg/dL (0.7-1.2) L 07/18/17 06:03 Estimated GFR > 60 ml/min 07/18/17 06:03 BUN/Creatinine Ratio 20 % 07/18/17 06:03 Glucose 115 mg/dL (65-100) H 07/18/17 06:03 Lactic Acid 1.60 mmol/L (0.7-2.0) 07/17/17 06:07 Calcium 8.8 mg/dL (8.4-10.2) 07/18/17 06:03 Total Bilirubin 0.30 mg/dL (0.1-1.2) 07/17/17 05:35 AST 19 units/L (5-40) 07/17/17 05:35 ALT 11 units/L (7-56) 07/17/17 05:35 Alkaline Phosphatase 59 units/L (35-129) 07/17/17 05:35 Troponin T < 0.010 ng/mL (0.00-0.029) 07/17/17 06:07 NT-Pro-B Natriuret Pep 1554 pg/mL (0-450) H 07/17/17 06:07 Total Protein 6.4 g/dL (6.3-8.2) 07/17/17 05:35 Albumin 3.5 g/dL (3.9-5) L 07/17/17 05:35 Albumin/Globulin Ratio 1.2 % 07/17/17 05:35 HCG, Qual Negative (Negative) 07/17/17 07:48 Urine Color Yellow (Yellow) 07/17/17 07:45 Urine Turbidity Clear (Clear) 07/17/17 07:45 Urine pH 5.0 (5.0-7.0) 07/17/17 07:45 Ur Specific [place] 1.019 (1.003-1.030) 07/17/17 07:45 Urine Protein 30 mg/dl mg/dL (Negative) 07/17/17 07:45 Urine Glucose (UA) Neg mg/dL (Negative) 07/17/17 07:45 Urine Ketones Neg mg/dL (Negative) 07/17/17 07:45 Urine Blood Mod (Negative) 07/17/17 07:45 Urine Nitrite Neg (Negative) 07/17/17 07:45 Urine Bilirubin Neg (Negative) 07/17/17 07:45 Urine Urobilinogen < 2.0 mg/dL (<2.0) 07/17/17 07:45 Ur Leukocyte Esterase Neg (Negative) 07/17/17 07:45 Urine WBC (Auto) 2.0 /HPF (0.0-6.0) 07/17/17 07:45 Urine RBC (Auto) 8.0 /HPF (0.0-6.0) 07/17/17 07:45 U Epithel Cells (Auto) 4.0 /HPF (0-13.0) 07/17/17 07:45 Urine Bacteria (Auto) 1+ /HPF (Negative) 07/17/17 07:45
[2017-07-19 13:10] LABS: Basophils % (Auto) 0.1 % (0.0-1.8); Hematocrit 40.4 % (30.3-42.9); Hemoglobin 13.6 gm/dl (10.1-14.3); Lymphocytes # (Auto) 1.4 K/mm3 (1.2-5.4); Lymphocytes % (Auto) 11.2 % (13.4-35.0); Mean Corpuscular HGB Conc 34 % (30-34); Mean Corpuscular Volume 72 fl (79-97); Monocytes # (Auto) 1.1 K/mm3 (0.0-0.8); Monocytes % (Auto) 8.2 % (0.0-7.3); Platelet Count 259 K/mm3 (140-440); Red Blood Count 5.62 M/mm3 (3.65-5.03); Red Cell Distribution Width 15.5 % (13.2-15.2)
[2017-07-19 13:28] LABS: Mean Corpuscular Hemoglobin 24 pg (28-32)
[2017-07-19 13:29] LABS: BUN/Creatinine Ratio 29; Blood Urea Nitrogen 20 mg/dL (7-17); Calcium 9.2 mg/dL (8.4-10.2); Hemolysis Index 29
[2017-07-19] MEDS: DESYREL PO SCH (22:12)
[2017-07-19] MEDS: SINGULAIR PO SCH (22:12)
[2017-07-19] MEDS: AMBIEN PO PRN (22:15)
[2017-07-20] MEDS: TESSALON PERLES PO SCH ×3 (02:00→17:43)
[2017-07-20] MEDS: PROVENTIL IH SCH ×4 (03:25→19:55)
[2017-07-20] MEDS: APRESOLINE IV PRN (06:54)
[2017-07-20 07:13] LABS: Basophils % (Auto) 0.3 % (0.0-1.8); Hematocrit 38.6 % (30.3-42.9); Hemoglobin 13.1 gm/dl (10.1-14.3); Lymphocytes # (Auto) 1.2 K/mm3 (1.2-5.4); Lymphocytes % (Auto) 9.2 % (13.4-35.0); Mean Corpuscular HGB Conc 34 % (30-34); Mean Corpuscular Volume 72 fl (79-97); Monocytes # (Auto) 0.5 K/mm3 (0.0-0.8); Monocytes % (Auto) 3.8 % (0.0-7.3); Platelet Count 256 K/mm3 (140-440); Red Blood Count 5.39 M/mm3 (3.65-5.03); Red Cell Distribution Width 15.3 % (13.2-15.2)
[2017-07-20 07:23] LABS: Mean Corpuscular Hemoglobin 24 pg (28-32)
[2017-07-20 07:29] LABS: BUN/Creatinine Ratio 32; Blood Urea Nitrogen 19 mg/dL (7-17); Calcium 8.8 mg/dL (8.4-10.2); Hemolysis Index 8
--- NOTE | 2017-07-20 08:13 | XRay Report ---
ROUTINE CHEST, TWO VIEWS: HISTORY: Followup pneumonia. Subtle infiltrates in the right upper lobe and lingula have resolved or nearly resolved since 07/17/17. Minor segmental atelectasis has developed in the right infrahilar region. No consolidation, pleural effusion or pneumothorax. Heart and mediastinal structures are within normal limits. The bony structures are grossly intact. IMPRESSION: Resolution or near resolution of the bilateral lung infiltrates as described.
[2017-07-20] MEDS: cefTRIAXone 1 GM in NACL 0.9% 20 ML IV SCH (09:53)
[2017-07-20] MEDS: LEXAPRO PO SCH (09:53)
[2017-07-20] MEDS: NORVASC PO SCH (09:54)
[2017-07-20] MEDS: ZITHROMAX PO SCH (09:55)
[2017-07-20] MEDS: LOVENOX SUB-Q SCH (09:55)
[2017-07-20] MEDS: SODIUM CHLORIDE FLUSH SYRINGE 10 ML IV SCH ×2 (09:56→21:32)
--- NOTE | 2017-07-20 10:57 | Progress Note ---
Assessment and Plan Assessment and plan: Bilateral pneumonia. CXR reveals multifocal PNA. Cont abx and f/u serial CXR. Echocardiogram reveals normal EF. Repeat chest x-ray reveals near complete resolution of infiltrates. Acute hypoxic resp failure. Etiology sec to above. Cont O2 and supportive care. Acute asthma exacerbation. Wean steroids, cont bronchodilators and nebs Leukocytosis. Etiology likely related to steroids. Taper steroids History Interval history: No new issues overnight. Hospitalist Physical - Constitutional Vitals: Temp Pulse Resp BP Pulse Ox 97.7 F 90 18 170/72 96 07/20/17 08:26 07/20/17 09:54 07/20/17 08:26 07/20/17 09:54 07/20/17 08:26 General appearance: Present: no acute distress, well-nourished - EENT Eyes: Present: PERRL, EOM intact ENT: hearing intact, clear oral mucosa, dentition normal - Neck Neck: Present: supple, normal ROM - Respiratory Respiratory effort: normal Respiratory: bilateral: CTA - Cardiovascular Rhythm: regular Heart Sounds: Present: S1 & S2. Absent: gallop, rub - Extremities Extremities: no ischemia, No edema, Full ROM - Abdominal General gastrointestinal: soft, non-tender, non-distended, normal bowel sounds - Integumentary Integumentary: Present: clear, warm, dry - Neurologic Neurologic: CNII-XII intact, moves all extremities Results - Labs CBC & Chem 7: 07/20/17 06:41 07/20/17 06:41 Labs: Laboratory Last Values WBC 12.7 K/mm3 (4.5-11.0) H 07/20/17 06:41 RBC 5.39 M/mm3 (3.65-5.03) H 07/20/17 06:41 Hgb 13.1 gm/dl (10.1-14.3) 07/20/17 06:41 Hct 38.6 % (30.3-42.9) 07/20/17 06:41 MCV 72 fl (79-97) L 07/20/17 06:41 MCH 24 pg (28-32) L 07/20/17 06:41 MCHC 34 % (30-34) 07/20/17 06:41 RDW 15.3 % (13.2-15.2) H 07/20/17 06:41 Plt Count 256 K/mm3 (140-440) 07/20/17 06:41 Lymph % (Auto) 9.2 % (13.4-35.0) L 07/20/17 06:41 [place] % (Auto) 3.8 % (0.0-7.3) 07/20/17 06:41 Eos % (Auto) 0.0 % (0.0-4.3) 07/20/17 06:41 Baso % (Auto) 0.3 % (0.0-1.8) 07/20/17 06:41 Lymph # 1.2 K/mm3 (1.2-5.4) 07/20/17 06:41 [place] # 0.5 K/mm3 (0.0-0.8) 07/20/17 06:41 Eos # 0.0 K/mm3 (0.0-0.4) 07/20/17 06:41 Baso # 0.0 K/mm3 (0.0-0.1) 07/20/17 06:41 Seg Neutrophils % 86.7 % (40.0-70.0) H 07/20/17 06:41 Seg Neutrophils # 11.1 K/mm3 (1.8-7.7) H 07/20/17 06:41 Sodium 139 mmol/L (137-145) 07/20/17 06:41 Potassium 4.3 mmol/L (3.6-5.0) 07/20/17 06:41 Chloride 101.1 mmol/L (98-107) 07/20/17 06:41 Carbon Dioxide 25 mmol/L (22-30) 07/20/17 06:41 Anion Gap 17 mmol/L 07/20/17 06:41 BUN 19 mg/dL (7-17) H 07/20/17 06:41 Creatinine 0.6 mg/dL (0.7-1.2) L 07/20/17 06:41 Estimated GFR > 60 ml/min 07/20/17 06:41 BUN/Creatinine Ratio 32 % 07/20/17 06:41 Glucose 113 mg/dL (65-100) H 07/20/17 06:41 Lactic Acid 1.60 mmol/L (0.7-2.0) 07/17/17 06:07 Calcium 8.8 mg/dL (8.4-10.2) 07/20/17 06:41 Total Bilirubin 0.30 mg/dL (0.1-1.2) 07/17/17 05:35 AST 19 units/L (5-40) 07/17/17 05:35 ALT 11 units/L (7-56) 07/17/17 05:35 Alkaline Phosphatase 59 units/L (35-129) 07/17/17 05:35 Troponin T < 0.010 ng/mL (0.00-0.029) 07/17/17 06:07 NT-Pro-B Natriuret Pep 1554 pg/mL (0-450) H 07/17/17 06:07 Total Protein 6.4 g/dL (6.3-8.2) 07/17/17 05:35 Albumin 3.5 g/dL (3.9-5) L 07/17/17 05:35 Albumin/Globulin Ratio 1.2 % 07/17/17 05:35 HCG, Qual Negative (Negative) 07/17/17 07:48 Urine Color Yellow (Yellow) 07/17/17 07:45 Urine Turbidity Clear (Clear) 07/17/17 07:45 Urine pH 5.0 (5.0-7.0) 07/17/17 07:45 Ur Specific [place] 1.019 (1.003-1.030) 07/17/17 07:45 Urine Protein 30 mg/dl mg/dL (Negative) 07/17/17 07:45 Urine Glucose (UA) Neg mg/dL (Negative) 07/17/17 07:45 Urine Ketones Neg mg/dL (Negative) 07/17/17 07:45 Urine Blood Mod (Negative) 07/17/17 07:45 Urine Nitrite Neg (Negative) 07/17/17 07:45 Urine Bilirubin Neg (Negative) 07/17/17 07:45 Urine Urobilinogen < 2.0 mg/dL (<2.0) 07/17/17 07:45 Ur Leukocyte Esterase Neg (Negative) 07/17/17 07:45 Urine WBC (Auto) 2.0 /HPF (0.0-6.0) 07/17/17 07:45 Urine RBC (Auto) 8.0 /HPF (0.0-6.0) 07/17/17 07:45 U Epithel Cells (Auto) 4.0 /HPF (0-13.0) 07/17/17 07:45 Urine Bacteria (Auto) 1+ /HPF (Negative) 07/17/17 07:45
[2017-07-20] MEDS: DESYREL PO SCH (21:31)
[2017-07-20] MEDS: AMBIEN PO PRN (21:31)
[2017-07-20] MEDS: SINGULAIR PO SCH (21:31)
[2017-07-21] MEDS: APRESOLINE IV PRN (00:11)
[2017-07-21] MEDS: PROVENTIL IH SCH ×3 (01:34→15:39)
[2017-07-21] MEDS: TESSALON PERLES PO SCH ×2 (02:34→10:09)
[2017-07-21 06:56] LABS: Basophils % (Auto) 0.1 % (0.0-1.8); Hematocrit 39.7 % (30.3-42.9); Lymphocytes # (Auto) 1.5 K/mm3 (1.2-5.4); Lymphocytes % (Auto) 12.7 % (13.4-35.0); Mean Corpuscular HGB Conc 33 % (30-34); Mean Corpuscular Volume 72 fl (79-97); Monocytes # (Auto) 0.4 K/mm3 (0.0-0.8); Monocytes % (Auto) 3.5 % (0.0-7.3); Platelet Count 294 K/mm3 (140-440); Red Cell Distribution Width 15.1 % (13.2-15.2)
[2017-07-21 07:04] LABS: Mean Corpuscular Hemoglobin 24 pg (28-32)
[2017-07-21 07:26] LABS: BUN/Creatinine Ratio 32; Blood Urea Nitrogen 19 mg/dL (7-17); Calcium 8.9 mg/dL (8.4-10.2); Hemolysis Index 22
--- NOTE | 2017-07-21 09:50 | Discharge Summary ---
Providers - Providers Date of Admission: 07/17/17 07:50 Attending physician: EUGENE LEROY Primary care physician: MOTH PROOFER Hospitalization Condition: Stable Hospital course: 41-year-old female presented to ED with complaints of body aches, headache, cough for 4 days prior to admission. CXR reveals multifocal PNA and pt was initiate on IV abx, IV steroid and nebulizers after which she clinically improved. Patient developed leukocytosis which is likely secondary to steroid administration. Patient's BP was elevated during her hospital course and antihypertensives were optimized. Echocardiogram revealed normal EF. Repeat chest x-ray reveals near complete resolution of infiltrates. Patient was clinically stable for discharge with steroid taper, abx and antihypertensives. She's advised to follow up with PCP within 1 week of discharge. Discharge diagnoses HTN Bilateral pneumonia Acute hypoxic resp failure Acute asthma exacerbation Leukocytosis Time spent for discharge: 31 mins Core Measure Documentation - Palliative Care Palliative Care/ Comfort Measures: Not Applicable - Core Measures Any of the following diagnoses?: none Exam - Constitutional Vitals: Temp Pulse Resp BP Pulse Ox 97.8 F 77 18 196/113 98 07/21/17 09:09 07/21/17 09:09 07/21/17 09:09 07/21/17 09:09 07/21/17 09:09 General appearance: Present: no acute distress, well-nourished - EENT Eyes: Present: PERRL ENT: hearing intact, clear oral mucosa - Neck Neck: Present: supple, normal ROM - Respiratory Respiratory effort: normal Respiratory: bilateral: CTA - Cardiovascular Heart Sounds: Present: S1 & S2. Absent: rub, click - Extremities Extremities: pulses symmetrical, No edema Peripheral Pulses: within normal limits - Abdominal General gastrointestinal: Present: soft, non-tender, non-distended, normal bowel sounds - Integumentary Integumentary: Present: clear, warm, dry - Musculoskeletal Musculoskeletal: gait normal, strength equal bilaterally - Psychiatric Psychiatric: appropriate mood/affect, intact judgment & insight - Neurologic Neurologic: CNII-XII intact, moves all extremities Plan Diet: low fat, low cholesterol, low salt Follow up with: PRIMARY CARE, [Primary Care Provider] - 7 Days Forms: Work/School Release Form Prescriptions: Azithromycin [Zithromax Z-BREE] 250 mg PO DAILY #1 pack Cefuroxime [Ceftin] 500 mg PO Q12H #14 tablet NIFEdipine XL [Procardia Xl] 90 mg PO QDAY #30 tablet predniSONE [Deltasone] 10 mg PO .TAPER #21 tab Valsartan [Diovan] 80 mg PO BID #60 tablet
[2017-07-21] MEDS ORDERED: PROCARDIA XL PO SCH (10:00)
[2017-07-21] MEDS ORDERED: DIOVAN PO SCH (10:00)
[2017-07-21] MEDS: LOVENOX SUB-Q SCH (10:10)
[2017-07-21] MEDS: ZITHROMAX PO SCH (10:10)
[2017-07-21] MEDS: SODIUM CHLORIDE FLUSH SYRINGE 10 ML IV SCH (10:11)
[2017-07-21] MEDS: LEXAPRO PO SCH (10:12)
[2017-07-21] MEDS: cefTRIAXone 1 GM in NACL 0.9% 20 ML IV SCH (10:25)
[2017-07-21 17:39] VITALS: BP 145/81
== END 2017-07-21 18:17 | disposition home or self-care (01) | DRG 193 ==
LOC: ED 02:07 → 4A 07:50
PROVIDERS: ADMIT Internal Medicine; ATTEND Hospitalist
DX: J18.9 Pneumonia, unspecified organism (principal); J96.01 Acute respiratory failure with hypoxia; J45.901 Unspecified asthma with (acute) exacerbation; E87.6 Hypokalemia; F43.10 Post-traumatic stress disorder, unspecified; F17.200 Nicotine dependence, unspecified, uncomplicated; I50.9 Heart failure, unspecified; I11.0 Hypertensive heart disease with heart failure; X58.XXXA Exposure to other specified factors, initial encounter; Z82.49 Family history of ischemic heart disease and other diseases of the circulatory system; Y93.9 Activity, unspecified; Y92.89 Other specified places as the place of occurrence of the external cause; Y99.8 Other external cause status
CPT/HCPCS: 36415; 71046; 80048; 80053; 81001; 82140; 83880; 84484; 84703; 85025; 87040; 87086; 93005; 93010; 93306; 94640; 94644; 94760; J0360; J0696; J1650; J2543; J2920; J7050; J7512

== ENCOUNTER 2017-08-15 08:35 | Emergency (ER) | payer SELFPAY ==
[2017-08-15 08:49] VITALS: BP 173/99
[2017-08-15 09:29] LABS: BUN/Creatinine Ratio 26; Blood Urea Nitrogen 21 mg/dL (7-17); Calcium 8.8 mg/dL (8.4-10.2); Hemolysis Index 4
[2017-08-15 09:47] LABS: Basophils % (Auto) 0.6 % (0.0-1.8); Eosinophils # (Auto) 0.1 K/mm3 (0.0-0.4); Eosinophils % (Auto) 2.2 % (0.0-4.3); Lymphocytes # (Auto) 1.4 K/mm3 (1.2-5.4); Lymphocytes % (Auto) 29.1 % (13.4-35.0); Mean Corpuscular HGB Conc 35 % (30-34); Mean Corpuscular Volume 72 fl (79-97); Monocytes # (Auto) 0.3 K/mm3 (0.0-0.8); Monocytes % (Auto) 5.5 % (0.0-7.3); Platelet Count 232 K/mm3 (140-440); Red Blood Count 4.74 M/mm3 (3.65-5.03); Red Cell Distribution Width 16.1 % (13.2-15.2)
[2017-08-15 09:48] LABS: Mean Corpuscular Hemoglobin 25 pg (28-32)
[2017-08-15] MEDS ORDERED: TESSALON PERLES PO ONE ×2 (09:51→09:58)
[2017-08-15] MEDS ORDERED: TORADOL IM ONE (09:51)
--- NOTE | 2017-08-15 09:52 | Emergency Department Report ---
- General Chief Complaint: Upper Respiratory Infection Stated Complaint: FLU LIKE SYMPTOMS Time Seen by Provider: 08/15/17 09:32 Source: patient Mode of arrival: Ambulatory Limitations: No Limitations - History of Present Illness Initial Comments: 42-year-old female with a past medical history of PTSD, hypertension, an asthma presents complaining of cough, night sweats, body aches, and headache 1 week. Patient was admitted here and discharged on July 21 with bilateral pneumonia. Since discharge patient was seen by her primary care doctor Dr. Pineda and given a second course of the unknown antibiotic. She finished a prednisone taper 2 weeks ago and was feeling better however, symptoms returned this past week. She complains of dry cough, shortness of breath without wheezing, night sweats, body aches, and frontal headache. - Related Data Previous Rx's Medication Instructions Recorded Last Taken Type Azithromycin [Zithromax Z-BREE] 250 mg PO DAILY #1 pack 07/21/17 Unknown Rx Cefuroxime [Ceftin] 500 mg PO Q12H #14 tablet 07/21/17 Unknown Rx NIFEdipine XL [Procardia Xl] 90 mg PO QDAY #30 tablet 07/21/17 Unknown Rx Valsartan [Diovan] 80 mg PO BID #60 tablet 07/21/17 Unknown Rx predniSONE [Deltasone] 10 mg PO .TAPER #21 tab 07/21/17 Unknown Rx Azithromycin [Zithromax Z-BREE] 1 dose PO DAILY 5 Days tab 08/15/17 Unknown Rx Benzonatate [Tessalon Perles] 100 mg PO Q8HR PRN #30 capsule 08/15/17 Unknown Rx Ibuprofen [Motrin] 800 mg PO Q8HR PRN #30 tablet 08/15/17 Unknown Rx predniSONE [Deltasone] 40 mg PO QDAY 5 Days tab 08/15/17 Unknown Rx Allergies Allergy/AdvReac Type Severity Reaction Status Date / Time No Known Allergies Allergy Unverified 01/21/17 22:39 ED Review of Systems ROS: Stated complaint: FLU LIKE SYMPTOMS Other details as noted in HPI Comment: All other systems reviewed and negative ED Past Medical Hx - Past Medical History Hx Hypertension: Yes Hx Congestive Heart Failure: No (echo June 2017 EF 55-60%) Hx Diabetes: No Hx Psychiatric Treatment: Yes (PTSD) Hx Asthma: Yes Hx COPD: No - Surgical History Additional Surgical History: Gallbladder 2004, [id number] - Social History Smoking Status: Current Every Day Smoker Substance Use Type: Alcohol - Medications Home Medications: Home Medications Medication Instructions Recorded Confirmed Last Taken Type Azithromycin [Zithromax Z-BREE] 250 mg PO DAILY #1 pack 07/21/17 Unknown Rx Cefuroxime [Ceftin] 500 mg PO Q12H #14 tablet 07/21/17 Unknown Rx NIFEdipine XL [Procardia Xl] 90 mg PO QDAY #30 tablet 07/21/17 Unknown Rx Valsartan [Diovan] 80 mg PO BID #60 tablet 07/21/17 Unknown Rx predniSONE [Deltasone] 10 mg PO .TAPER #21 tab 07/21/17 Unknown Rx Azithromycin [Zithromax Z-BREE] 1 dose PO DAILY 5 Days tab 08/15/17 Unknown Rx Benzonatate [Tessalon Perles] 100 mg PO Q8HR PRN #30 capsule 08/15/17 Unknown Rx Ibuprofen [Motrin] 800 mg PO Q8HR PRN #30 tablet 08/15/17 Unknown Rx predniSONE [Deltasone] 40 mg PO QDAY 5 Days tab 08/15/17 Unknown Rx ED Physical Exam - General Limitations: No Limitations - Other Other exam information: General: No limitations, patient is alert in no acute distress Head exam: Atraumatic, normocephalic Eyes exam: Normal appearance, pupils equal reactive to light, extraocular movements intact ENT: Moist mucous membrane, normal oropharynx Neck exam: Normal inspection, full range of motion, no meningismus nontender Respiratory exam: Clear to auscultation bilateral, no wheezes, rales, crackles, frequent dry cough Cardiovascular: Normal rate and rhythm, normal heart sounds Abdomen: Soft, nondistended, and nontender, with normal bowel sounds, no rebound, or guarding Extremity: Full range of motion normal inspection no deformity Back: Normal Inspection, full range of motion, no tenderness Neurologic: Alert, oriented x3, cranial nerves intact, no motor or sensory deficit Psychiatric: normal affect, normal mood Skin: Warm, dry, intact ED Course Vital Signs 08/15/17 08/15/17 08:44 10:04 Temperature 98.3 F Pulse Rate 86 Respiratory 20 18 Rate Blood Pressure 173/99 O2 Sat by Pulse 99 Oximetry ED Medical Decision Making - Lab Data Result diagrams: 08/15/17 09:00 08/15/17 09:00 Lab Results 08/15/17 08/15/17 08/15/17 Range/Units 09:00 09:00 09:00 WBC 4.8 (4.5-11.0) K/mm3 RBC 4.74 (3.65-5.03) M/mm3 Hgb 12.0 (10.1-14.3) gm/dl Hct 34.0 (30.3-42.9) % MCV 72 L (79-97) fl MCH 25 L (28-32) pg MCHC 35 H (30-34) % RDW 16.1 H (13.2-15.2) % Plt Count 232 (140-440) K/mm3 Lymph % (Auto) 29.1 (13.4-35.0) % [place] % (Auto) 5.5 (0.0-7.3) % Eos % (Auto) 2.2 (0.0-4.3) % Baso % (Auto) 0.6 (0.0-1.8) % Lymph # 1.4 (1.2-5.4) K/mm3 [place] # 0.3 (0.0-0.8) K/mm3 Eos # 0.1 (0.0-0.4) K/mm3 Baso # 0.0 (0.0-0.1) K/mm3 Seg Neutrophils % 62.6 (40.0-70.0) % Seg Neutrophils # 3.0 (1.8-7.7) K/mm3 Sodium 138 (137-145) mmol/L Potassium 3.8 (3.6-5.0) mmol/L Chloride 99.7 (98-107) mmol/L Carbon Dioxide 27 (22-30) mmol/L Anion Gap 15 mmol/L BUN 21 H (7-17) mg/dL Creatinine 0.8 (0.7-1.2) mg/dL Estimated GFR > 60 ml/min BUN/Creatinine Ratio 26 % Glucose 85 (65-100) mg/dL Calcium 8.8 (8.4-10.2) mg/dL HCG, Qual Negative (Negative) - Radiology Data Radiology results: report reviewed read by radiology xr chest pa and lat:naf - Medical Decision Making Labs and chest x-ray unremarkable. Patient be placed on prednisone, Z-Bree, Tessalon Perles. Recommendation human services assistant due to her repeat resp illness - Differential Diagnosis bronchitis, pneumonia, viral syndrome Critical Care Time: No Critical care attestation.: If time is entered above; I have spent that time in minutes in the direct care of this critically ill patient, excluding procedure time. ED Disposition Clinical Impression: Acute bronchitis Disposition: DC- TO HOME OR SELFCARE Is pt being admited?: No Does the pt Need Aspirin: No Condition: Stable Instructions: Acute Bronchitis (ED) Additional Instructions: Take the medication as described. Follow-up with the primary care doctor and human services assistant. Return is symptoms worsen as indicated by your discharge instructions Prescriptions: Azithromycin [Zithromax Z-BREE] 1 dose PO DAILY 5 Days tab Benzonatate [Tessalon Perles] 100 mg PO Q8HR PRN #30 capsule PRN Reason: Cough Ibuprofen [Motrin] 800 mg PO Q8HR PRN #30 tablet PRN Reason: Overdose predniSONE [Deltasone] 40 mg PO QDAY 5 Days tab Referrals: PRIMARY MD ANDRE [Primary Care Provider] - 3-5 Days JODI PRICE MD [Staff Physician] - 3-5 Days (Lung specialist) Time of Disposition: 12:17
[2017-08-15] MEDS ORDERED: TORADOL ONE (09:58)
--- NOTE | 2017-08-15 11:54 | XRay Report ---
CHEST TWO VIEWS: 08/15/17 08:35:00 CLINICAL: Shortness of breath. COMPARISON: 07/20/17 FINDINGS: Normal heart and pulmonary vasculature. The lungs are normally expanded and clear. The bones and soft tissues are normal. IMPRESSION: Normal chest.
== END 2017-08-15 12:27 | disposition home or self-care (01) ==
LOC: ED 08:35
DX: J20.9 Acute bronchitis, unspecified (principal); J45.909 Unspecified asthma, uncomplicated; F17.200 Nicotine dependence, unspecified, uncomplicated; I10 Essential (primary) hypertension; F43.10 Post-traumatic stress disorder, unspecified; Z90.49 Acquired absence of other specified parts of digestive tract
CPT/HCPCS: 36415; 71046; 80048; 84703; 85025; 93005; 93010; 96372; 99284; J1885; 99283

== ENCOUNTER 2017-08-28 11:48 | Emergency (ER) | payer OTHER ==
[2017-08-28] MEDS ORDERED: PERCOCET 5/325 PO ONE ×2 (14:16→15:52)
[2017-08-28] MEDS ORDERED: TORADOL IM ONE (14:16)
--- NOTE | 2017-08-28 14:43 | XRay Report ---
Cervical spine 3 views: History: Neck pain status post fall. Findings: Loss of cervical lordosis. Normal height of vertebral bodies and intervertebral disc. Normal articular surfaces. No fracture. Normal prevertebral soft tissue. Impression: No evidence of acute fracture.
--- NOTE | 2017-08-28 14:44 | XRay Report ---
Lumbar spine 2 views: History: Back pain, status post fall. Findings: Normal height of vertebral bodies and intervertebral disc. Normal articular surfaces. No fracture. No paravertebral mass. Impression: No bony or articular abnormality lumbar spine.
--- NOTE | 2017-08-28 15:21 | Emergency Department Report ---
ED Fall HPI - General Chief Complaint: Pain General Stated Complaint: PAIN ALL OVER Time Seen by Provider: 08/28/17 13:48 Source: patient Mode of arrival: Ambulatory - History of Present Illness Initial Comments: 42-year-old female with a past medical history of hypertension and PTSD presents to the hospital complaining of generalized body aches after fall earlier today. Patient lives in a trailer. In the hallway in her home the floor gave way causing her to fall straight down through the floor. Fall was broken by a lower level and patient did not actually fall out of the trailer. She complains of pain to bilateral knees, lower back, neck, and arms. No head injury or LOC reported. Pain overall is rated 9/10 intensity, aching, constant , worse with movement and palpation. Patient able to ambulate unassisted. Patient presents hypertensive and states she did take her BP medication today. - Related Data Previous Rx's Medication Instructions Recorded Last Taken Type Azithromycin [Zithromax Z-BREE] 250 mg PO DAILY #1 pack 07/21/17 Unknown Rx Cefuroxime [Ceftin] 500 mg PO Q12H #14 tablet 07/21/17 Unknown Rx NIFEdipine XL [Procardia Xl] 90 mg PO QDAY #30 tablet 07/21/17 Unknown Rx Valsartan [Diovan] 80 mg PO BID #60 tablet 07/21/17 Unknown Rx predniSONE [Deltasone] 10 mg PO .TAPER #21 tab 07/21/17 Unknown Rx Azithromycin [Zithromax Z-BREE] 1 dose PO DAILY 5 Days tab 08/15/17 Unknown Rx Benzonatate [Tessalon Perles] 100 mg PO Q8HR PRN #30 capsule 08/15/17 Unknown Rx predniSONE [Deltasone] 40 mg PO QDAY 5 Days tab 08/15/17 Unknown Rx Cyclobenzaprine [Flexeril] 10 mg PO TID PRN #30 tablet 08/28/17 Unknown Rx Ibuprofen [Motrin 800 MG tab] 800 mg PO Q8HR PRN #30 tablet 08/28/17 Unknown Rx oxyCODONE /ACETAMINOPHEN [Percocet 1 tab PO Q4HR PRN #20 tablet 08/28/17 Unknown Rx 5/325] Allergies Allergy/AdvReac Type Severity Reaction Status Date / Time No Known Allergies Allergy Unverified 01/21/17 22:39 ED Review of Systems ROS: Stated complaint: PAIN ALL OVER Other details as noted in HPI Comment: All other systems reviewed and negative ED Past Medical Hx - Past Medical History Hx Hypertension: Yes Hx Congestive Heart Failure: No (echo June 2017 EF 55-60%) Hx Diabetes: No Hx Psychiatric Treatment: Yes (PTSD) Hx Asthma: Yes Hx COPD: No - Surgical History Additional Surgical History: Gallbladder 2005, [id number] - Social History Smoking Status: Current Every Day Smoker - Medications Home Medications: Home Medications Medication Instructions Recorded Confirmed Last Taken Type Azithromycin [Zithromax Z-BREE] 250 mg PO DAILY #1 pack 07/21/17 Unknown Rx Cefuroxime [Ceftin] 500 mg PO Q12H #14 tablet 07/21/17 Unknown Rx NIFEdipine XL [Procardia Xl] 90 mg PO QDAY #30 tablet 07/21/17 Unknown Rx Valsartan [Diovan] 80 mg PO BID #60 tablet 07/21/17 Unknown Rx predniSONE [Deltasone] 10 mg PO .TAPER #21 tab 07/21/17 Unknown Rx Azithromycin [Zithromax Z-BREE] 1 dose PO DAILY 5 Days tab 08/15/17 Unknown Rx Benzonatate [Tessalon Perles] 100 mg PO Q8HR PRN #30 capsule 08/15/17 Unknown Rx predniSONE [Deltasone] 40 mg PO QDAY 5 Days tab 08/15/17 Unknown Rx Cyclobenzaprine [Flexeril] 10 mg PO TID PRN #30 tablet 08/28/17 Unknown Rx Ibuprofen [Motrin 800 MG tab] 800 mg PO Q8HR PRN #30 tablet 08/28/17 Unknown Rx oxyCODONE /ACETAMINOPHEN [Percocet 1 tab PO Q4HR PRN #20 tablet 08/28/17 Unknown Rx 5/325] ED Physical Exam - General Limitations: No Limitations - Other Other exam information: General: No limitations, patient is alert in no acute distress Head exam: Atraumatic, normocephalic Eyes exam: Normal appearance, pupils equal reactive to light, extraocular movements intact ENT: Moist mucous membrane, normal oropharynx Neck exam: Normal inspection, full range of motion, no meningismus, mild midline tenderness but tenderness greatest along the trapezius bilaterally Respiratory exam: Clear to auscultation bilateral, no wheezes, rales, crackles Cardiovascular: Normal rate and rhythm, normal heart sounds Abdomen: Soft, nondistended, and nontender, with normal bowel sounds, no rebound, or guarding Extremity: Full range of motion normal inspection no deformity. Mild tenderness to anterior knee and tibia tuberosity without significant swelling or deformity. Full active and passive range of motion of the knee. No other extremity injury or deformity with exception of generalized muscle aches. Back: Normal Inspection, full range of motion, mild midline lumbar tenderness but also to paraspinal muscle tenderness Neurologic: Alert, oriented x3, cranial nerves intact, no motor or sensory deficit Psychiatric: normal affect, normal mood Skin: Warm, dry, intact ED Course Vital Signs 08/28/17 08/28/17 08/28/17 11:53 15:11 15:12 Temperature 98.2 F Pulse Rate 89 Respiratory 15 16 16 Rate Blood Pressure Blood Pressure 172/117 [Left] O2 Sat by Pulse 99 Oximetry 08/28/17 08/28/17 08/28/17 16:02 16:05 17:11 Temperature 98.1 F Pulse Rate 63 65 65 Respiratory 16 18 Rate Blood Pressure 197/11 Blood Pressure 197/111 196/102 [Left] O2 Sat by Pulse 100 100 Oximetry 08/28/17 17:39 Temperature Pulse Rate 65 Respiratory Rate Blood Pressure 180/107 Blood Pressure [Left] O2 Sat by Pulse 100 Oximetry - Reevaluation(s) Reevaluation #1: 08/28/17 18:02 see [facility] ED Medical Decision Making - Radiology Data Radiology results: report reviewed Lumbar spine 2 views: History: Back pain, status post fall. Findings: Normal height of vertebral bodies and intervertebral disc. Normal articular surfaces. No fracture. No paravertebral mass. Impression: No bony or articular abnormality lumbar spine. Cervical spine 3 views: History: Neck pain status post fall. Findings: Loss of cervical lordosis. Normal height of vertebral bodies and intervertebral disc. Normal articular surfaces. No fracture. Normal prevertebral soft tissue. Impression: No evidence of acute fracture. - Medical Decision Making fall injury Generalized muscular skeletal pain Lumbar and C-spine x-ray negative Head injury or LOC pain improved at the Percocet 10, toradol, flexeril htn chronic no cp, sob, simpson normal renal function on July labs hx of similar bp's with previous ed visits pt takes a bp med once a day after clonidine 0.1mg bp remains elevated, additional clonidine given prior to d/c. Pt feels better and does not want to wait for recheck. pt is stable for d/ c. Patient instructed to obtain a home BP monitor and monitor blood pressure at home. Follow up with her primary care doctor Logan recommended to reassess her symptoms as well as determine if adjustment in her current blood pressure medication is required. - Differential Diagnosis fracture, contusion, sprain Critical Care Time: No Critical care attestation.: If time is entered above; I have spent that time in minutes in the direct care of this critically ill patient, excluding procedure time. ED Disposition Clinical Impression: Musculoskeletal pain, Fall, Back strain, Neck strain, Uncontrolled hypertension Disposition: TO HOME OR SELFCARE Is pt being admited?: No Does the pt Need Aspirin: No Condition: Stable Instructions: Hypertension (ED), Low Back Strain (ED), Musculoskeletal Pain (ED ), Cervical Sprain (ED), How to Take a Blood Pressure (ED) Additional Instructions: Take the medication as described. Return if symptoms worsen as indicated by your discharge instructions. Continue to monitor your blood pressure and record the results as discussed. Follow up with your doctor for further management of your injuries as well as management of your blood pressure. Prescriptions: Cyclobenzaprine [Flexeril] 10 mg PO TID PRN #30 tablet PRN Reason: Muscle Spasm Ibuprofen [Motrin 800 MG tab] 800 mg PO Q8HR PRN #30 tablet PRN Reason: Overdose oxyCODONE /ACETAMINOPHEN [Percocet 5/325] 1 tab PO Q4HR PRN #20 tablet PRN Reason: Pain Referrals: PRIMARY CARE, [Primary Care Provider] - 3-5 Days Forms: Work/School Release Form(ED) Time of Disposition: 18:08
[2017-08-28] MEDS ORDERED: CATAPRES PO ONE ×3 (16:02→17:48)
[2017-08-28] MEDS ORDERED: FLEXERIL PO ONE (17:06)
[2017-08-28 17:45] VITALS: BP 180/107
== END 2017-08-28 18:21 | disposition home or self-care (01) ==
LOC: ED 11:48
DX: S16.1XXA Strain of muscle, fascia and tendon at neck level, initial encounter (principal); S39.012A Strain of muscle, fascia and tendon of lower back, initial encounter; J45.909 Unspecified asthma, uncomplicated; F17.200 Nicotine dependence, unspecified, uncomplicated; I10 Essential (primary) hypertension; W18.39XA Other fall on same level, initial encounter; Y93.89 Activity, other specified; Y92.89 Other specified places as the place of occurrence of the external cause; Y99.8 Other external cause status
CPT/HCPCS: 72040; 72100; 96372; 99283; J1885